=== PATIENT | male | born 1995 ===

== ENCOUNTER 2018-02-28 22:35 | Emergency (ER) | payer OTHER ==
[2018-02-28 22:36] VITALS: BMI 25.8
== END 2018-02-28 23:17 | disposition left against medical advice (07) ==
LOC: ED 22:35
DX: Z02.89 Encounter for other administrative examinations (principal); R11.10 Vomiting, unspecified

== ENCOUNTER 2018-03-01 08:03 | Emergency (ER) | payer OTHER ==
[2018-03-01 08:35] VITALS: BMI 28.8
[2018-03-01 08:41] VITALS: TEMP 98.3
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
[2018-03-01 10:29] VITALS: BP 130/84; PULSE 68; RESP 17; O2SAT 100
== END 2018-03-01 10:22 | disposition home or self-care (01) ==
LOC: ED 08:03
DX: S09.90XD Unspecified injury of head, subsequent encounter (principal); V47.5XXD Car driver injured in collision with fixed or stationary object in traffic accident, subsequent encounter

== ENCOUNTER 2018-03-02 19:40 | Emergency (ER) | payer SELFPAY ==
[2018-03-02 19:41] VITALS: BMI 28.8
[2018-03-02 20:00] VITALS: TEMP 99.6
[2018-03-02] MEDS ORDERED: Sodium Chloride 0.9% 1,000 ML IV STA (20:46)
--- NOTE | 2018-03-02 20:51 | ED PDOC ---
Arrival/HPI - General Chief Complaint: GI Problem Time Seen by Provider: 03/02/18 20:38 Historian: Patient, Partner - History of Present Illness Narrative History of Present Illness (Text): you were treated in the ED today for single episode of vomiting a little a blood but otherwise without any nausea/vomiting/headache/dizziness/difficulty breathing/chest pain/abdomen pain/numbness/tingling/loss of limb function/pain with urination. No alcohol use regularly. no new foods. 03/02/18 20:48 03/02/18 20:48 Time/Duration: 4-6 hours Symptom Onset: Sudden Symptom Course: Resolved Quality: Other (no pain) Activities at Onset: Rest Context: Sitting Past Medical History - Provider Review Nursing Documentation Reviewed: Yes - Travel History Have you recently traveled outside [place] w/in the past 3 mons?: No - Infectious Disease Hx of Infectious Diseases: None - Tetanus Immunization Tetanus Immunization: Up to Date - Past Medical History Past Medical History: No Previous - Cardiac Hx Cardiac Disorders: No - Pulmonary Hx Respiratory Disorders: No - Neurological Hx Neurological Disorder: No - HEENT Hx HEENT Disorder: No - Renal Hx Renal Disorder: No - Endocrine/Metabolic Hx Endocrine Disorders: No - Hematological/Oncological Hx Blood Disorders: No - Integumentary Hx Dermatological Disorder: No - Musculoskeletal/Rheumatological Hx Musculoskeletal Disorders: No - Gastrointestinal Hx Gastrointestinal Disorders: Yes Hx Vomiting: Yes - Genitourinary/Gynecological Hx Genitourinary Disorders: Yes Other/Comment: CYST REMOVED FROM L TESTICLE - Psychiatric Hx Psychophysiologic Disorder: No Hx Substance Use: No - Past Surgical History Past Surgical History: No Previous - Surgical History Other/Comment: testicular surgery - Anesthesia Hx Anesthesia: Yes Hx Anesthesia Reactions: No Hx Malignant Hyperthermia: No - Suicidal Assessment Feels Threatened In Home Enviroment: No Family/Social History - Physician Review Nursing Documentation Reviewed: Yes Family/Social History: No Known Family HX Smoking Status: Never Smoked Hx Alcohol Use: No Hx Substance Use: No Hx Substance Use Treatment: No Allergies/Home Meds Allergies/Adverse Reactions: Allergies No Known Allergies Allergy (Verified 03/02/18 19:55) Review of Systems - Review of Systems Constitutional: Normal Eyes: Normal ENT: Normal Respiratory: Normal Cardiovascular: Normal Gastrointestinal: Hematemesis Genitourinary Male: Normal Musculoskeletal: Normal Skin: Normal Neurological: Normal Endocrine: Normal Hemo/Lymphatic: Normal Psychiatric: Normal Physical Exam Vital Signs Reviewed: Yes Vital Signs Temp Pulse Resp BP Pulse Ox 03/02/18 19:56 99.6 F 86 16 130/81 97 Temperature: Afebrile Blood Pressure: Hypertensive Pulse: Regular Respiratory Rate: Normal Appearance: Positive for: Well-Appearing Pain Distress: None Mental Status: Positive for: Alert and Oriented X 3 - Systems Exam Head: Present: Atraumatic, Normocephalic Pupils: Present: PERRL Extroacular Muscles: Present: EOMI Conjunctiva: Present: Normal Ears: Present: Normal Mouth: Present: Moist Mucous Membranes Pharnyx: Present: Normal Nose (External): Present: Atraumatic Nose (Internal): Present: Normal Inspection Neck: Present: Normal Range of Motion Respiratory/Chest: Present: Clear to Auscultation, Good Air Exchange Cardiovascular: Present: Regular Rate and Rhythm Abdomen: No: Tenderness, Distention, Normal Bowel Sounds, Peritoneal Signs, Rebound, Guarding, McBurney's Point Tender, Rovsing's Sign Present, Hernias, Feeding Tubes, Ostomy Tubes, Mass/Organomegaly, Scars, Other Back: Present: Normal Inspection Upper Extremity: Present: Normal Inspection Lower Extremity: Present: Normal Inspection Neurological: Present: GCS=15, CN II-XII Intact, Speech Normal, Motor Func Grossly Intact Skin: Present: Warm, Normal Color Psychiatric: Present: Alert, Oriented x 3, Normal Insight, Normal Concentration Medical Decision Making ED Course and Treatment: you were treated in the ED today for single episode of vomiting a little a blood but otherwise without any nausea/vomiting/headache/dizziness/difficulty breathing/chest pain/abdomen pain/numbness/tingling/loss of limb function/pain with urination. No alcohol use regularly. no new foods. You were otherwise breathing easily, pink moist lips, smiling and talking with your partner, good strength/sensation, alert/oriented, walking easily, clear lungs, no abdomen tenderness, no fever temp 99.6, stable heart rate 86, stable breathing rate 16, excellent oxygen level 97% room air, elevated blood pressure 130/81 which we recommend repeat in 2-3 days primary care office to determine further treatment , you have blood tests mild infection count 11, stable blood level hemoglobin 16 /platelets 316, stable chemistry, lipase normal 82, protonix, iv fluids, observation done in the ED with improvement, had a long conversation about staying in the hospital further observation/care but you refused and cautioned for complications/, counselled to monitor symptoms and you wanted to go home wit partner. 1. Recommend pepcid daily. 2. Recommend follow-up primary care 1-2 days to review symptoms, gastroenterology clinic to review symptoms and for elevated liver total bilirubin test 1.6 to ensure no complications. 4. If any worsening pain, fever, chills, nausea, vomiting, difficulty breathing, numbness, loss of limb function, pain with urination or any medical condition then return to the ED. Reassessment Condition: Re-examined, Improved - Lab Interpretations Lab Results: 03/02/18 21:30 03/02/18 21:30 Lab Results 03/02/18 21:30: Sodium 143, Potassium 4.2, Chloride 101, Carbon Dioxide 31, Anion Gap 16, BUN 12, Creatinine 1.0, Est GFR ( Amer) > 60, Est GFR (Non- Af Amer) > 60, Random Glucose 94, Calcium 9.6, Total Bilirubin 1.6 H, AST 36, ALT 41, Alkaline Phosphatase 82, Total Protein 8.4 H, Albumin 4.9 H, Globulin 3.5, Albumin/Globulin Ratio 1.4, Lipase 82 03/02/18 21:30: PT 12.0, INR 1.05, APTT 29.0 03/02/18 21:30: WBC 11.7 H D, RBC 5.63, Hgb 16.2, Hct 47.6, MCV 84.5, MCH 28.8, MCHC 34.0, RDW 13.4, Plt Count 316, MPV 10.5, Gran % 68.6 H, Lymph % (Auto) 24.4 , [place] % (Auto) 6.1 H, Eos % (Auto) 0.7 L, Baso % (Auto) 0.2, Gran # 8.03 H, Lymph # (Auto) 2.9, [place] # (Auto) 0.7 H, Eos # (Auto) 0.1, Baso # (Auto) 0.02 I have reviewed the lab results: Yes - Medication Orders Current Medication Orders: Discontinued Medications Sodium Chloride (Sodium Chloride 0.9%) 1,000 mls @ 1,000 mls/hr IV .Q1H STA Stop: 03/02/18 21:45 Last Admin: 03/02/18 21:20 Dose: 1,000 mls/hr eMAR Start Stop Document 03/02/18 21:20 EQ (Rec: 03/02/18 21:20 EQ [id number]) Intravenous Solution Start Date 03/02/18 Start Time 21:20 Pantoprazole Sodium (Protonix Inj) 40 mg IVP STAT STA Stop: 03/02/18 20:47 Last Admin: 03/02/18 21:20 Dose: 40 mg IVP Administration Document 03/02/18 21:20 EQ (Rec: 03/02/18 21:20 EQ [id number]) Charges for Administration # of IVP Administrations 1 Disposition/Present on Arrival - Present on Arrival Any Indicators Present on Arrival: No History of DVT/PE: No History of Uncontrolled Diabetes: No Urinary Catheter: No History of Decub. Ulcer: No History Surgical Site Infection Following: None - Disposition Have Diagnosis and Disposition been Completed?: Yes Diagnosis: Hematemesis Disposition: HOME/ ROUTINE Disposition Time: 22:18 Patient Plan: Discharge Patient Problems: Current Active Problems Problem Status Onset Hematemesis Acute Condition: IMPROVED Discharge Instructions (ExitCare): Gastrointestinal Bleeding (DC) Additional Instructions: you were treated in the ED today for single episode of vomiting a little a blood but otherwise without any nausea/vomiting/headache/dizziness/difficulty breathing/chest pain/abdomen pain/numbness/tingling/loss of limb function/pain with urination. No alcohol use regularly. no new foods. You were otherwise breathing easily, pink moist lips, smiling and talking with your partner, good strength/sensation, alert/oriented, walking easily, clear lungs, no abdomen tenderness, no fever temp 99.6, stable heart rate 86, stable breathing rate 16, excellent oxygen level 97% room air, elevated blood pressure 130/81 which we recommend repeat in 2-3 days primary care office to determine further treatment , you have blood tests mild infection count 11, stable blood level hemoglobin 16 /platelets 316, stable chemistry, lipase normal 82, protonix, iv fluids, observation done in the ED with improvement, had a long conversation about staying in the hospital further observation/care but you refused and cautioned for complications/, counselled to monitor symptoms and you wanted to go home wit partner. 1. Recommend pepcid daily. 2. Recommend follow-up primary care 1-2 days to review symptoms, gastroenterology clinic to review symptoms and for elevated liver total bilirubin test 1.6 to ensure no complications. 4. If any worsening pain, fever, chills, nausea, vomiting, difficulty breathing, numbness, loss of limb function, pain with urination or any medical condition then return to the ED. Prescriptions: Famotidine [Pepcid] 20 mg PO DAILY 20 Days #20 tab Referrals: PCP,NO [Primary Care Provider] - Follow up with primary Forms: [employer] ([place]), WORK NOTE
[2018-03-02 21:40] LABS: BASO # 0.02 K/mm3 (0.0-2.0); BASO % 0.2 % (0.0-3.0); EOS # 0.1 (0.0-0.7); EOS % 0.7 % (1.5-5.0); GRAN # 8.03 (1.4-6.5); GRAN % 68.6 % (50.0-68.0); HEMOGLOBIN 16.2 g/dL (14.0-18.0); LYMPH # 2.9 (1.2-3.4); LYMPH % 24.4 % (22.0-35.0); MEAN CELL VOLUME 84.5 fl (80.0-105.0); MEAN CORPUSCULAR HEMOGLOBIN 28.8 pg (25.0-35.0); MEAN PLATELET VOLUME 10.5 fl (7.0-11.0); MONO # 0.7 (0.1-0.6); MONO % 6.1 % (1.0-6.0); RBC 5.63 10^6/uL (3.5-6.1); RED CELL DISTRIBUTION WIDTH 13.4 % (11.5-14.5); WHITE BLOOD COUNT 11.7 10^3/ul (4.5-11.0)
[2018-03-02 21:52] LABS: ALB/GLOB RATIO 1.4 (1.1-1.8); ALBUMIN 4.9 g/dL (3.0-4.8); ALT/SGPT 41 U/L (7-56); AST/SGOT 36 U/L (17-59); BLOOD UREA NITROGEN 12 mg/dL (7-21); CALCIUM 9.6 mg/dL (8.4-10.5); GFR AFRICAN-AMERICAN > 60; GFR NON-AFRICAN AMERICAN > 60; LIPASE 82 U/L (23-300)
[2018-03-02 21:53] LABS: INR 1.05 (0.93-1.08)
[2018-03-02 23:21] VITALS: BP 125/72; PULSE 82; RESP 18; O2SAT 99
== END 2018-03-02 22:40 | disposition home or self-care (01) ==
LOC: ED 19:40
DX: K92.0 Hematemesis (principal)
CPT/HCPCS: 80053; 83690; 85025; 85610; 85730; 96374; 99284; C9113; J7040